=== PATIENT | male | born 1995 | race African-American/Black ===

== ENCOUNTER 2016-10-09 19:16 | Emergency (ER) | payer MEDICAID, OTHER ==
[~2016-10-09] VITALS: Ht 182.9 cm; Wt 107.7 kg
[2016-10-09] MEDS ORDERED: ONDANSETRON HCL 4 MG/2 ML VIAL ONE (19:30)
[2016-10-09] MEDS ORDERED: MORPHINE SULFATE 4 MG/ML SYRG ONE (19:30)
[2016-10-09 19:45] VITALS: BP 149/91
[2016-10-09] MEDS ORDERED: ONDANSETRON HCL 4 MG/2 ML VIAL IV ONE (19:45)
[2016-10-09] MEDS ORDERED: cefTRIAXone 1GM/50ML D5W 50 ML IV ONE (19:45)
[2016-10-09] MEDS ORDERED: MORPHINE SULFATE 4 MG/ML SYRG IV ONE (19:45)
[2016-10-09] MEDS ORDERED: TETANUS-DIPTH-ACEL PERTUSSIS 0.5ML SYRG IM ONE (19:45)
[2016-10-09] MEDS ORDERED: LIDOCAINE 1% HCL (LOCAL ANESTH.) INJ 20ML MDV ONE (19:48)
[2016-10-09] MEDS ORDERED: LIDOCAINE 1% HCL (LOCAL ANESTH.) INJ 20ML MDV IJ ONE (20:15)
== END 2016-10-09 21:01 | disposition home or self-care (01) ==
LOC: ER 19:20 → EDBD 19:20 → ER 21:00
DX: S61.412A Laceration without foreign body of left hand, initial encounter (principal); F12.10 Cannabis abuse, uncomplicated; Z23 Encounter for immunization; W45.8XXA Other foreign body or object entering through skin, initial encounter; Y93.89 Activity, other specified; Y99.8 Other external cause status; Y92.89 Other specified places as the place of occurrence of the external cause
CPT/HCPCS: 12042; 73130; 90471; 90715; 94761; 96365; 96375; 99284; J0696; J2001; J2270; J2405

== ENCOUNTER 2016-10-29 10:43 | Emergency (ER) | payer OTHER ==
[~2016-10-29] VITALS: Ht 182.9 cm; Wt 102.1 kg
[2016-10-29 10:58] VITALS: BP 151/43
== END 2016-10-29 11:55 | disposition home or self-care (01) ==
LOC: ER 10:43
DX: S61.412D Laceration without foreign body of left hand, subsequent encounter (principal); F12.10 Cannabis abuse, uncomplicated; X58.XXXD Exposure to other specified factors, subsequent encounter; Y99.8 Other external cause status; Y92.89 Other specified places as the place of occurrence of the external cause